=== PATIENT | female | born 1990 | race Caucasian/White ===

== ENCOUNTER 2017-04-13 19:07 | Emergency (ER) | payer SELFPAY ==
[2017-04-13] MEDS ORDERED: ONDANSETRON HCL 4 MG/2 ML SOL IV ONE (19:54)
[2017-04-13] MEDS ORDERED: KETOROLAC TROMETHAMINE 30 MG/ML SOL IV ONE (19:55)
[2017-04-13] MEDS ORDERED: ONDANSETRON HCL 4 MG/2 ML SOL ONE (19:57)
[2017-04-13] MEDS ORDERED: KETOROLAC TROMETHAMINE 30 MG/ML SOL ONE (19:57)
[2017-04-13] MEDS ORDERED: SODIUM CHLORIDE 0.9% 1000ML 1,000 ML IV NR (20:00)
[2017-04-13] MEDS ORDERED: SODIUM CHLORIDE 0.9% 1000ML 1,000 ML IV ONE (20:00)
[2017-04-13 20:11] LABS: BASOPHILS % (AUTO) 1 % (0-3); EOSINOPHILS % (AUTO) 3 % (0-9); HEMATOCRIT 42 % (35-47); MEAN CORPUSCULAR HGB CONC 33.6 gm/dl (32.0-36.0); MEAN CORPUSCULAR VOLUME 85 fL (81-99); MONOCYTES % (AUTO) 5.7 % (0-12); NEUTROPHILS % (AUTO) 64.4 % (37-80)
[2017-04-13] MEDS ORDERED: SODIUM CHLORIDE 0.9% FLUSH 10 ML SOL IV PRN (20:11)
[2017-04-13 20:29] LABS: ALBUMIN 3.8 gm/dl (3.4-5.0); ALT 30 IU/L (14-63); CALCIUM 9.2 mg/dl (8.5-10.1); GLOM FILT RATE 81 mL/min (>60); POTASSIUM 3.7 mMol/L (3.5-5.1); SODIUM 140 mMol/L (136-145)
[2017-04-13] MEDS ORDERED: TRAMADOL HYDROCHLORIDE 50 MG TAB PO ONE (21:01)
[2017-04-13] MEDS ORDERED: TRAMADOL HYDROCHLORIDE 50 MG TAB ONE (21:04)
[2017-04-13 21:13] VITALS: BP 126/83; PULSE 91; RESP 16; TEMP 98.9; O2SAT 99
== END 2017-04-13 21:11 | disposition home or self-care (01) | DRG 446 ==
LOC: ED 19:07
DX: K81.1 Chronic cholecystitis (principal)
CPT/HCPCS: 36415; 80053; 84484; 85025; 96365; 96374; 96375; 99284; J1885; J2405